=== PATIENT | female | born 2005 | race Caucasian/White ===

== ENCOUNTER 2023-11-13 10:20 | Emergency (ER) | payer BC, SELFPAY ==
--- NOTE | 2023-11-13 10:56 | ED.URI ---
HPI - URI/Sore Throat General Chief Complaint: Upper Respiratory Infection Stated Complaint: Cough, Congestion, Sore Throat Time Seen by Provider: 11/13/23 10:50 Source: patient Mode of arrival: ambulatory Limitations: no limitations History of Present Illness MD elicited complaint: sore throat and nasal congestion Pertinent past history: other (Rachelle is a 18-year-old female patient presenting to clinic today with complaints of cough, congestion, and sore throat x4 days. She denies any known fever or chills.) Related Data Home Medications Medication Instructions Recorded Confirmed paroxetine HCl 30 mg tablet mg PO 11/13/23 Allergies Allergy/AdvReac Type Severity Reaction Status Date / Time morphine Allergy Rash Verified 11/13/23 10:40 Review of Systems Review of Systems: Pertinent positives per HPI. Patient denies any fever, chills, rash, headache, visual changes, dizziness, shortness of breath, chest pain, palpitations, nausea, vomiting, diarrhea, constipation, abdominal pain, or any urinary issues. PMFSH Comments At the time of my signature, I reviewed and agree with the nursing past medical, surgical, social, and family history. There is no relevant family history pertinent to the patient complaint. Exam Narrative: General: Well-developed, well nourished, in no apparent distress Head: Normocephalic, atraumatic Eyes: Pupils equally round and reactive to light bilaterally, EOM intact, sclera and conjunctive clear, no discharge, lids normal Ears: TMs intact and congested, ear canals clear, no drainage, grossly hearing normal. Nose: Nares patent, clear nasal discharge, no inflammation, no sinus tenderness. Mouth: Oral pharynx red final tonsillar enlargement without lesions or masses, good dentition, MMM. Neck: Supple, trachea midline, no enlargement of anterior or posterior cervical nodes, no thyroid masses or goiter palpable. Cardio: Regular rate and rhythm, s1 and s2 normal, no murmur appreciated. Resp: Clear to auscultation bilaterally, no rhonchi, rales, wheezing or rubs Course Course Emergency Course: Portions of this record may have been created with voice recognition software. Level of Care: Express Care Visit Vital Signs Vital signs: Vital signs reviewed MDM - URI/Sore Throat MDM Narrative Medical decision making narrative: At the time of visit patient is resting comfortably on the exam table. Patient appears to be nontoxic. COVID, influenza, and strep test were all performed and negative in the clinic today. We will send strep for culture. I suspect patient has URI. Prescription for prednisone was sent to the pharmacy. Supportive measures were discussed with the patient and they voiced understanding discharge instructions and agrees to treatment plan. Return precautions reviewed Differential Diagnosis Differential diagnosis: Likely upper respiratory infection, otitis media, sinusitis, viral infection, bronchitis, influenza, pharyngitis and other (COVID) Discharge Plan Discharge Clinical Impression: Upper respiratory infection, Pharyngitis, Viral infection Patient Disposition: Home, Self-Care Condition: Stable Instructions: Antibiotic Form, Pharyngitis (ED), Viral Syndrome (ED), Cold Symptoms (ED) Additional Instructions: COVID, influenza, and strep test were all negative. We will send strep for culture if this comes back positive we will contact you and place you on antibiotics at that time Take prescription medications only as prescribed-prednisone Increase fluids and stay well hydrated Tylenol/motrin for pain/fever Flonase and OTC antihistamines as directed Vicks vapor rub to open sinuses Sinus rinses for congestion Cepacol spray, cough drops, throat lozenges, warm tea with honey/lemon, gargle salt water to soothe throat BRAT diet for diarrhea Clear liquids x 24 hours then advance as tolerated for nausea/vomiting Go to the ED if you develop a wor
== END 2023-11-13 11:25 | disposition home or self-care (01) ==
PROVIDERS: Emergency Provider Nurse Practitioner Family; PCP Family Medicine
DX: J06.9 Acute upper respiratory infection, unspecified (principal); J02.9 Acute pharyngitis, unspecified; Z20.822 Contact with and (suspected) exposure to COVID-19
CPT/HCPCS: 87081; 87426; 87804; 87880; 99213; C9803; G0463

== ENCOUNTER 2024-01-03 07:01 | Emergency (ER) | payer SELFPAY ==
--- NOTE | ~2024-01-03 | CT_ITS ---
EXAMINATION: CTA brain carotid DATE: 01/03/2024 10:00 INDICATION: Right neck pain. Twisting injury. TECHNIQUE: Computed tomographic angiography (CTA) of the head was performed without and with 100 mL O [id number] intravenous contrast. CTA of the neck was performed with intravenous contrast. Automated exposure control and iterative reconstruction technique were employed. The dose-length product was 1 672.62 mGy-cm. Maximum intensity projection and volume rendered 3D-reconstructions were created by manuel payton technologist on a separate workstation. COMPARISON: None. FINDINGS: HEAD CTA: There is no intracranial hemorrhage, acute infarction, or abnormal intracranial mass lesion . The ventricles are normal in size. The orbits are normal. There is mucosal thickening in the parana sydnie sinuses. The mastoid air cells are normal. The vertebral arteries are codominant. There is no sig nificant stenosis of basilar artery or the posterior cerebral arteries. The posterior commuting arter ies are normal. There is no significant stenosis of the intracranial internal carotid arteries or ant erior or middle cerebral arteries. Anterior communicating artery is normal. There is no aneurysm. NECK CTA: There are no pathologically enlarged lymph nodes. There is no significant stenosis of the v ertebral arteries. There is no visible plaque in the proximal internal carotid arteries. There is 0% stenosis of the proximal right internal carotid artery relative to normal distal artery lumen diamete r (NASCET criteria). There is 0% stenosis of the proximal left internal carotid artery relative to no rmal distal artery lumen diameter. IMPRESSION: 1. Normal brain. No aneurysm or significant intracranial arterial stenosis. 2. 0% stenosis of the proximal internal carotid arteries relative to normal distal artery lumen diame ters (NASCET criteria). Reviewed, dictated and finalized at location A. ESSING SUPERVISOR IMPRESSION: 1. Normal brain. No aneurysm or significant intracranial arterial stenosis. 2. 0% stenosis of the proximal internal carotid arteries relative to normal dis judiht artery lumen diameters (NASCET criteria).
--- NOTE | ~2024-01-03 | CT_ITS ---
EXAMINATION: CT cervical spine wo con DATE: 01/03/2024 10:00 INDICATION: Right neck pain. Twisting injury. TECHNIQUE: Computed tomography (CT) of the cervical spine was performed without intravenous contrast. Automated exposure control and iterative reconstruction technique were employed. The dose-length pro duct was 497.15 mGy-cm. COMPARISON: None FINDINGS: There is 8 degrees dextrocurvature of cervical spine. There is hypolordosis of cervical spi ne. Vertebral body heights and intervertebral disc heights are normal. At C7-T1, there is mild bilate ral facet joint osteoarthritis. No neural foraminal stenosis or central canal stenosis. IMPRESSION: 1. No fracture. Reviewed, dictated and finalized at location A. S SANDER BELT IMPRESSION: 1. No fracture.
[2024-01-03 07:17] VITALS: BP 128/96; PULSE 65; RESP 16; TEMP 37; O2SAT 99
[2024-01-03 07:19] VITALS: BP 137/89; PULSE 62; RESP 16; TEMP 36.6; O2SAT 99
--- NOTE | 2024-01-03 07:25 | ED.NECK ---
HPI - Neck Pain/Injury General Chief Complaint: Neck Pain/Injury Stated Complaint: neck pain, injury Time Seen by Provider: 01/03/24 07:19 History of Present Illness HPI Narrative: Patient is a 18-year-old female with history of ovarian cysts here with neck pain. She states that yesterday morning around 8:00 a.m. she woke up feeling as though she slept on her neck wrong. She then cracked her neck about 3 times. On the 3rd time she felt shooting pains down her left arm and now has had difficulty moving her neck. The pain has persistently worsened over the last 24 hours and now she has difficulty moving her neck either direction due to significant pain and tightness. No numbness or weakness down her arms and legs. No blood thinner use. No incontinence. Related Data Home Medications Medication Instructions Recorded Confirmed paroxetine HCl 30 mg tablet mg PO 11/13/23 Allergies Allergy/AdvReac Type Severity Reaction Status Date / Time morphine Allergy Rash Verified 01/03/24 07:25 Review of Systems Review of Systems: All systems reviewed & are unremarkable except as noted in HPI and below Exam Narrative: GENERAL: Well-appearing, well-nourished, and in no acute distress. HEAD: Normocephalic, atraumatic. EYES: PERRLA and EOMI. ENT: Nares clear. Mucous membranes moist. NECK: Supple. No carotid bruit. Decreased ROM due to pain. No mid line cervical tenderness. Tenderness over the lateral right neck CHEST: Clear to auscultation. No respiratory distress. HEART: Regular rate and rhythm. Normal peripheral pulses. ABDOMEN: Soft, nontender, nondistended. EXTREMITIES: Normal range of motion. No edema. SKIN: Warm, dry, no rash. NEURO: No focal deficits. No upper or lower extremity drift, no sensory deficits in upper or lower extremities. Alert and oriented x3. PSYCH: Normal mood and affect. Course Course Emergency Course: Chart review performed. Patient here with neck pain since yesterday. Triage vitals normal. One prior express care visit in October 2023 for pharyngitis. Patient seen evaluated, nontoxic appearing. No neuro deficits on evaluation. Most likely differential is cervical strain after manipulation. Will do imaging to rule out carotid or vertebral dissection given pain and symptoms began after neck manipulation home. Valium ordered for pain and muscle spasm. Lab work and imaging reviewed, with blood cell count of 3.8, nonspecific. Chemistry within normal limits. CT/CTA negative. negative. Patient re-evaluated, feeling quite a bit better after muscle relaxers. Will discharge on muscle relaxers. Advised to continue continue using her neck brace as needed if it provides her comfort but it is not necessary to use. The results of pertinent diagnostic studies and exam findings were discussed. The patient?s provisional diagnosis and plan of care were discussed with the patient and present family. The patient and/or present family expressed understanding of the diagnosis and plan. The nurse was instructed to provide written instructions and appropriate follow-up information. The patient understands their need and responsibility to obtain additional follow-up as instructed. The risks of medications administered and prescribed were discussed with the patient and family present. Vital Signs Vital signs: Vital Signs Temperature 98.6 F 01/03/24 07:17 Pulse Rate 65 01/03/24 07:17 Respiratory Rate 16 01/03/24 07:17 Blood Pressure 128/96 H 01/03/24 07:17 Pulse Oximetry 99 01/03/24 07:17 Oxygen Delivery Room Air 01/03/24 07:17 Temperature 97.8 F 01/03/24 07:19 Pulse Rate 60 01/03/24 10:41 Respiratory Rate 16 01/03/24 10:41 Blood Pressure 114/83 01/03/24 10:41 Pulse Oximetry 99 01/03/24 10:41 Oxygen Delivery Room Air 01/03/24 07:19 MDM - Neck Pain/Injury Lab Data 01/03/24 08:55 01/03/24 08:55 Labs: Lab Results 01/03/24 Rang
[2024-01-03 08:54] VITALS: BP 120/73; PULSE 59; RESP 16; O2SAT 98
[2024-01-03] MEDS: diazePAM (*CRX) 5 MG TABLET PO (08:57)
[2024-01-03 09:04] LABS: Eosinophils Absolute Auto 0.1 K/mm3 (0-0.3); Eosinophils Percent Auto 1.8 % (0-4.4); Hematocrit 43.4 % (37.0-47.0); Hemoglobin 14.1 g/dL (12.0-15.0); Immature Granulocyte Absolute 0.01 K/mm3 (0.00-0.031); Immature Granulocyte Percent A 0.3 % (0-0.5); Lymphocytes Absolute Auto 1.23 K/mm3 (0.9-3.2); Lymphocytes Percent Auto 32.2 % (18.3-44.2); Mean Corpuscular HGB Conc 32.5 g/dl (32-36); Mean Corpuscular Hemoglobin 30.3 pg (26-34); Mean Corpuscular Volume 93.1 fl (80-100); Mean Platelet Volume 9.6 fl (7.4-10.4); Monocytes Absolute Auto 0.7 K/mm3 (0.1-0.6); Neutrophils Absolute Auto 1.8 K/mm3 (1.3-6.7); Neutrophils Percent Auto 47.7 % (45.5-73.1); Platelet Count Result 257 k/mm3 (150-375); Red Blood Count 4.66 M/mm3 (4.2-5.4); Red Cell Distribution Width 13.2 % (11.5-14.5); White Blood Count 3.8 K/mm3 (4.5-10.0)
[2024-01-03 09:15] LABS: Alanine Aminotransferase 23 U/L (6-35); Albumin Level 4.5 g/dL (3.5-5.1); Alkaline Phosphatase 82 U/L (38-126); Anion Gap 8 mmol/L (8-16); Aspartate Amino Transferase 35 U/L (14-36); Bilirubin,Total 0.3 mg/dL (0.2-1.3); Blood Urea Nitrogen 9 mg/dL (7-17); Calcium 9.7 mg/dL (8.4-10.2); Carbon Dioxide 26 mmol/L (22-30); Chloride 104 mmol/L (98-107); Estimated CRCL calculation 105 ml/min; Estimated Glomerular Filt Rate > 60; Glucose 96 mg/dL (65-110); Potassium 3.9 mmol/L (3.4-5.0); Sodium 138 mmol/L (137-145)
[2024-01-03 10:41] VITALS: BP 114/83; PULSE 60; RESP 16; O2SAT 99
[2024-01-03] MEDS: KETOROLAC 15 MG/ML VIAL (*BKC) IV PUSH (10:55)
[2024-01-03 11:01] VITALS: BP 130/96; PULSE 54; RESP 15; TEMP 36.8; O2SAT 98
== END 2024-01-03 11:04 | disposition home or self-care (01) ==
PROVIDERS: Emergency Provider Student in an Organized Health Care Education/Training Program; PCP Family Medicine
DX: S16.1XXA Strain of muscle, fascia and tendon at neck level, initial encounter (principal); X58.XXXA Exposure to other specified factors, initial encounter
CPT/HCPCS: 36415; 70496; 70498; 72125; 80053; 81025; 85025; 96374; 99284; A9270; J1885; Q9967